=== PATIENT | male | born 1950 | race African-American/Black ===

== ENCOUNTER 2019-08-07 06:31 | Outpatient (CLI) | payer MEDICARE, OTHER ==
[2019-08-07 14:11] LABS: #Basophils 0.1 thou/uL (0.0-0.2); #Eosinphils 0.2 thou/uL (0.0-0.7); #Monocytes 0.5 thou/uL (0.11-0.59); #Neutrophils 4.1 thou/uL (1.40-6.50); %Basophils 0.8 % (0.0-1.0); %Eosinophils 2.3 % (0.0-10.0); %Monocytes 7.8 % (0.0-10.0); %Neutrophils 60.2 % (42.0-75.0); Hemoglobin 15.6 g/dL (14.0-18.0); Mean Corpuscular HGB CONC 32.9 g/dL (32.0-36.0); Mean Corpuscular Volume 91.4 fL (78.0-98.0); Mean Platelet Volume 6.9 fL (7.4-10.4); Platelet Count 315 thou/uL (130-400); RBC Distribution Width 12.3 % (11.5-14.5); Red Blood Cell (RBC) Count 5.19 mill/uL (4.70-6.10); White Blood Cell (WBC) Count 6.8 thou/uL (4.8-10.8)
[2019-08-07 14:14] LABS: INR-International Normal Ratio 0.9; Prothrombin Time 12.5 sec (12.0-14.7)
[2019-08-07 14:30] LABS: Anion Gap 14 mmol/L (10-20); BUN (Urea Nitrogen) 9 mg/dL (8.4-25.7); Calc. Creatinine Clearance 0 mL/min (70-130); Calcium 9.4 mg/dL (7.8-10.44); Carbon Dioxide 27 mmol/L (23-31); Chloride 102 mmol/L (98-107); Estimated GFR-MDRD 82; Glucose 296 mg/dL (80-115); Potassium 3.8 mmol/L (3.5-5.1); Sodium 139 mmol/L (136-145)
[2019-08-07 17:22] LABS: SARS-CoV-2 MS2 Positive; SARS-CoV-2 N Gene Negative; SARS-CoV-2 S Gene Negative; SARS-CoV-2 orf1ab Negative
== END 2019-08-07 06:32 | disposition home or self-care (01) ==
LOC: LABBT 06:31
PROVIDERS: ATTEND Orthopaedic Surgery
DX: Z01.818 Encounter for other preprocedural examination (principal); Z11.59 Encounter for screening for other viral diseases; M75.102 Unspecified rotator cuff tear or rupture of left shoulder, not specified as traumatic
CPT/HCPCS: 80048; 85025; 85610; 93005; U0003; 87635; 93010

== ENCOUNTER 2019-08-12 05:42 | Day surgery (SDC) | payer MEDICARE, OTHER ==
[2019-08-07 13:11] VITALS: BMI 27.1
--- NOTE | 2019-08-11 14:10 | HP ---
HISTORY OF PRESENT ILLNESS: The patient is a 69-year-old male with a several month history of left shoulder pain, which began after lifting weights in the gym. He has had persistent symptoms, right wrist, restriction of activities, and previous cortisone injection, which only gave temporary relief. He has pain and weakness, which is interfering with day-to-day activities. PAST MEDICAL HISTORY: The patient has a history of diabetes, hypertension, and atherosclerotic cardiovascular disease. He is on Eliquis. He has stopped Eliquis 4 days prior to surgery. Has been seen and cleared for surgery by Dr. Steel. CURRENT MEDICATIONS: Include: 1. Eliquis. 2. Hydrocodone. 3. Omeprazole. 4. Amiodarone. 5. Flomax. 6. Fluticasone. 7. Metformin. 8. Amlodipine. 9. Benazepril. ALLERGIES: HE IS ALLERGIC TO LEVAQUIN AND KETOCONAZOLE. FAMILY HISTORY: Otherwise unremarkable. SOCIAL HISTORY: Otherwise unremarkable. REVIEW OF SYSTEMS: Otherwise unremarkable. PHYSICAL EXAMINATION: GENERAL: A healthy male. HEENT: Unremarkable. NECK: Supple. CHEST: Clear. ABDOMEN: Soft, nontender. RECTAL: Deferred. GENITAL: Deferred. EXTREMITIES: Pertinent findings of the left shoulder, there is tenderness in the subacromial area. Passive forward flexion 160 degrees. There is pain with abduction and mild weakness and mild weakness of external rotation. There is good internal rotation strength. There is no instability. There is a positive impingement sign. Neurovascular exam is intact. There are palpable distal pulses. DIAGNOSTIC STUDIES: X-rays of the left shoulder reveal DJD of the AC joints, chronic changes of the greater tuberosity. MRI scan of the left shoulder reveals a large retracted supraspinatus and infraspinatus tear with mild edema and degeneration within the supraspinatus and infraspinatus. There is DJD of the AC joint and biceps tendinitis. IMPRESSION: Impingement syndrome, rotator cuff tear, left shoulder. PLAN: Open acromioplasty and rotator cuff repair, and possible biceps tenodesis, left shoulder. The nature of the surgery, length of recovery, potential complications such as infection, loss of motion, incomplete relief, neurovascular injury, recurrent tear, inability to repair the tear, and need for additional treatment with repeat surgery have been discussed in detail. Job ID: [id number]
[2019-08-12] MEDS ORDERED: Midazolam HCl 2 mg/2 ml Vial ONE (06:44)
[2019-08-12] MEDS ORDERED: Fentanyl 100 MCG/2 ML VIAL ONE ×5 (06:44→12:21)
[2019-08-12] MEDS ORDERED: Lidocaine 1% (PF) 30 ML VIAL ONE (06:45)
[2019-08-12] MEDS ORDERED: Sodium Chloride 0.9% 100 ML ONE (06:51)
[2019-08-12] MEDS ORDERED: Tranexamic Acid 1,000 MG/10 ML VIAL ONE (06:51)
[2019-08-12] MEDS ORDERED: Zolpidem Tartrate 5 MG TAB PO PRN (08:54)
[2019-08-12] MEDS ORDERED: Ondansetron PF 4 MG/2 ML Vial IVP PRN (08:54)
[2019-08-12] MEDS ORDERED: HYDROcodone/Acetaminophen 10/325 mg Tablet PO PRN ×2 (08:54)
[2019-08-12] MEDS ORDERED: traMADol HCl 50 MG TAB PO PRN ×2 (08:54)
[2019-08-12] MEDS ORDERED: Ketorolac Tromethamine 30 MG/ML VIAL IVP PRN (08:54)
[2019-08-12] MEDS ORDERED: Promethazine HCl 25 MG/ML VIAL IM PRN (08:54)
[2019-08-12] MEDS ORDERED: Acetaminophen 325 MG TAB PO PRN (08:54)
[2019-08-12] MEDS ORDERED: Ropivacaine 0.2% 550 ML 550 ML NERVE BLCK SCH (08:54)
[2019-08-12] MEDS ORDERED: Fentanyl 100 MCG/2 ML VIAL SLOW IVP PRN (08:57)
--- NOTE | 2019-08-12 11:54 | OP ---
DATE OF PROCEDURE: 08/12/2019 SUPERVISOR STERILE PROCESSING: DARON Goldman. ANESTHESIA: General plus scalene block. PREOPERATIVE DIAGNOSIS: Rotator cuff tear, left shoulder. POSTOPERATIVE DIAGNOSIS: Rotator cuff tear, left shoulder. PROCEDURES PERFORMED: Open acromioplasty and rotator cuff repair, left shoulder. OPERATIVE FINDINGS: There was moderate subacromial impingement and spurring. There was a large U shaped chronic retracted tear of the rotator cuff. The biceps seemed to be slightly inflamed but was intact and I left this alone. A satisfactory repair was accomplished. DESCRIPTION OF PROCEDURE: After satisfactory anesthesia was induced in a semi-persaud chair position, the patient was prepped and draped in routine manner. Shoulder was approached through an anterolateral incision centered over lateral aspect of the acromion, carried distally through the skin and subcutaneous tissues. Bleeding points were controlled with Bovie cautery. The deltoid raphe was split and the deltotrapezial fascia reflected off the acromion and distal clavicle and reflected distally. Coracoacromial ligament was resected. The anterior aspect of the acromion was then excised, flushed with the distal clavicle with an osteotome. The undersurface beveled with a curved osteotome and rongeur and rasp. A partial subacromial bursectomy was performed. Using sharp and blunt dissection, the above findings were noted, the tear immobilized and the ends freshened. The greater tuberosity was rongeured down to a bony bed to provide bleeding bony bed for repair. Two convergence stitches of heavy FiberWire suture were placed first and the remainder of the tear was then repaired with two double loaded corkscrew anchors passed through both the anterior and posterior limbs of the rotator cuff. These were all tied in sequence and then reinforced in fashion with SwiveLock suture anchors in the proximal humerus. This appeared to give good stable repair and the repair laid down flat. The wound was thoroughly irrigated. The deltoid was repaired back to bone with interrupted #1 Ethibonds. The deltoid raphe was repaired with 0 Vicryl. Subcutaneous tissue closed with 2-0 Vicryl and the skin closed with staple gun. Sterile dressing was applied and the patient immobilized in an arm sling. He was awakened and taken to recovery room in stable condition. There were no apparent intraoperative complications. The estimated blood loss was less than 100 mL. The patient will be discharged home in satisfactory condition, instructed on ice and elevation, and given written wound care instructions. He was instructed on a home program of isometrics of his biceps and triceps and gentle passive pendulum exercises, but no active range of motion. He has a prescription for Gilbert 10 at home for pain. He will resume Eliquis in 48 hours. He will be rechecked in my office in 10 to 14 days or sooner if there are any problems prior to that time. Job ID: [id number]
[2019-08-12] MEDS ORDERED: Ropivacaine 0.5% HCl/PF (150 MG/30 ML VIAL) ONE (15:55)
[2019-08-12] MEDS ORDERED: Glycopyrrolate 0.2 MG/ML 5 ML SYRINGE ONE (15:55)
[2019-08-12] MEDS ORDERED: Ondansetron PF 4 MG/2 ML Vial ONE (15:55)
[2019-08-12] MEDS ORDERED: Lidocaine 1% PF 5 ML VIAL ONE (15:55)
[2019-08-12] MEDS ORDERED: PROPOFOL 200 MG/20 ML VIAL ONE (15:55)
[2019-08-12] MEDS ORDERED: Rocuronium Bromide 10 MG/ML (10ML VIAL) ONE (15:55)
[2019-08-12] MEDS ORDERED: Ropivacaine 0.2% HCl/PF (40 MG/20 ML VIAL) ONE (15:55)
--- NOTE | 2019-08-12 22:12 | EKG ---
Test Reason : PREOP Blood Pressure : / mmHG Vent. Rate : 058 BPM Atrial Rate : 058 BPM P-R Int : 186 ms QRS Dur : 104 ms QT Int : 432 ms P-R-T Axes : 051 -10 001 degrees QTc Int : 424 ms Sinus bradycardia Moderate voltage criteria for LVH, may be normal variant ST elevation, consider early repolarization, pericarditis, or injury Abnormal ECG No previous ECGs available Confirmed by Jessica URENA ([id number]) on 08/12/2019 10:12:17 PM Referred By: ARIANNA Confirmed By:Jessica URENA
== END 2019-08-12 14:08 | disposition home or self-care (01) ==
LOC: SDC 05:42
PROVIDERS: ATTEND Orthopaedic Surgery
PROC: 0LQ20ZZ Repair Left Shoulder Tendon, Open Approach (ICD-10-PCS; principal; 2019-08-12)
PROC: 3E0T3BZ Introduction of Anesthetic Agent into Peripheral Nerves and Plexi, Percutaneous Approach (ICD-10-PCS; 2019-08-12)
DX: M75.102 Unspecified rotator cuff tear or rupture of left shoulder, not specified as traumatic (principal); M75.42 Impingement syndrome of left shoulder; M75.22 Bicipital tendinitis, left shoulder; G89.18 Other acute postprocedural pain; E11.9 Type 2 diabetes mellitus without complications; I10 Essential (primary) hypertension; I25.10 Atherosclerotic heart disease of native coronary artery without angina pectoris; K21.9 Gastro-esophageal reflux disease without esophagitis; N40.0 Benign prostatic hyperplasia without lower urinary tract symptoms; F17.210 Nicotine dependence, cigarettes, uncomplicated; Z79.01 Long term (current) use of anticoagulants; Z79.84 Long term (current) use of oral hypoglycemic drugs; Z79.899 Other long term (current) drug therapy; X50.0XXA Overexertion from strenuous movement or load, initial encounter; Y92.39 Other specified sports and athletic area as the place of occurrence of the external cause
CPT/HCPCS: 23412; 64416; 93005; 97139; A4306; 36416; 93010; C1713; J0690; J2001; J2250; J2405; J2704; J2795; J3010; J3490